=== PATIENT | male | born 2005 | race Hispanic/Latino ===

== ENCOUNTER 2024-12-04 23:48 | Emergency (ER) | payer OTHER ==
[~2024-12-04] VITALS: Ht 180.3 cm; Wt 111.6 kg
[2024-12-04 23:51] VITALS: BP 135/62; PULSE 74; RESP 20; TEMP 98.5; O2SAT 98
[2024-12-05] MEDS ORDERED: KETO10TA2 PO (01:52)
--- NOTE | 2024-12-05 01:53 | ERN ---
General Chief Complaint: FOOT INJURY/PAIN Stated Complaint: C/O PAIN WITH SWELLING TO LEFT FOOT Time Seen by MD: 23:59 Time Seen by Midlevel: 23:59 Source: patient History of Present Illness Initial Comments The patient is a 19-year-old male with no significant past medical history presenting to the emergency department for evaluation of pain to his left ankle. The patient states he accidentally tripped over a hose and twisted his left ankle. Denies any fall or injury to the head. This occurred at a proximally 12:00 p.m. today. Allergies: Coded Allergies: No Known Allergies (Unverified Allergy, Unknown, 12/04/24) Past Medical History Past Medical History: No Pertinent History Past Surgical History: Other ROS Dictation CONSTITUTIONAL: Negative except for HPI HEAD/FACE: Negative except for HPI EENT: Negative except for HPI RESPIRATORY: Negative except for HPI GASTROINTESTINAL/ABDOMINAL: Negative except for HPI GENITOURINARY: Negative except for HPI MUSCULOSKELETAL: Negative except for HPI INTEGUMENTARY: Negative except for HPI NEUROLOGICAL/PSYCH: Negative except for HPI HEMATOLOGIC/LYMPHATIC: Negative except for HPI All Systems Negative, Except as noted above. 13 point review of systems assessed and all negative except for above. Physical Exam Physical Exam Dictation PHYSICAL EXAM: GENERAL: alert,, awake oriented x 3 HEENT: EOMI, Sclera non icteric, moist mucosa NECK: Supple, no JVD, trachea midline LUNGS: Clear breath sounds bilaterally. No wheezes HEART: Regular rate and rhythm. Normal S1 and S2, without murmurs ABD: Abdomen soft, nontender. Bowel sounds present EXT: There is tenderness overlying the proximal portion of the 4th and 5th digit, range of motion restricted secondary to pain, 2+ DP, PT pulses to the left ankle foot NEURO: Alert and oriented to person, follows commands MDM MDM: Differential diagnosis: Fracture, contusion, dislocation There are no social concerns with this patient. Prescription drug management Prescriptions will include: Toradol Medical management and examination interpretation discussions were had by me with other qualified healthcare professionals as indicated for the patient's care. ED Course Orders Procedure Category Date Status Time Ankle Comp 3vws Lt RAD 12/05/24 Taken 01:18 Foot Comp 3+Vws Lt RAD 12/05/24 Taken 01:18 Ketorolac PHA 12/05/24 Complete Tromethamine 30mg/Ml 01:30 Current Medications Medications (Trade) Dose Ordered Sig/Iza Route PRN Reason Start Time Stop Time Status Last Admin Dose Admin Ketorolac Tromethamine (toRADol) 30 mg ONCE ONCE IM 12/05/24 01:30 12/05/24 01:31 DC 12/05/24 01:29 Vital Signs Date Time Temp Pulse Resp B/P (MAP) Pulse Ox O2 Delivery O2 Flow Rate FiO2 12/04/24 23:51 98.4 74 20 135/62 98 Room Air* 0 21 12/04/24 23:51 98.4 74 20 135/62 74 Room Air DX & DISP Disposition: Discharge Departure Impression: Primary Impression: Left ankle sprain Condition: Stable Scripts Ketorolac Tromethamine (Ketorolac Tromethamine) 10 Mg Tablet 1 TAB PO TID for pain for 5 Days, #15 TAB 0 Refills Prov: PADILLA MONZON 12/05/24 Additional Instructions: Your x-ray of the left ankle and left foot does not show any evidence of an acute fracture or dislocation. I have given you a prescription for Toradol which should help improve your symptoms over the next couple of days. Follow up with your primary care doctor in 2-3 days for repeat evaluation Referrals: ADITYA MONROE MD (PCP) Time of Disposition: 01:51 I have reviewed the case, and I agree with, Diagnosis and Plan I performed the substantive portion of the visit. I have reviewed and personally made and approve the management plan that is documented in the note by myself or the KAREN. I acknowledge for responsibility for the patient's management plan. PADILLA MONZON Dec 05, 2024 01:52
--- NOTE | 2024-12-05 02:00 | NUR ---
CEDRIC WRAP APPLIED TO LEFT ANKLE/FOOT ORDERED. CRUTCHES PROVIDED AND EDUCATION PROVIDED ON PROPER CRUTCH USE. PT WAS ABLE TO DEMONSTRATE BACK PROPER CRUTCH USE.
--- NOTE | 2024-12-05 02:17 | HMCIMG ---
EXAM: CR Left Ankle, 3 views. CLINICAL HISTORY: Rule out fracture. COMPARISON: None provided. FINDINGS: No acute fracture or aggressive appearing osseous lesion. Joint spaces are within normal limits. No radiographic evidence of joint effusion. The soft tissues are unremarkable. IMPRESSION: No acute bony abnormality is evident. /[place]
--- NOTE | 2024-12-05 02:19 | HMCIMG ---
EXAM: CR Left Foot, 3 views. CLINICAL HISTORY: Rule out fracture. COMPARISON: None provided. FINDINGS: No acute fracture or aggressive appearing osseous lesion. Joint spaces are within normal limits. The soft tissues are unremarkable. IMPRESSION: No acute bony abnormality is evident. /[place]
== END 2024-12-05 02:10 | disposition home or self-care (01) ==
LOC: EDH 23:48
DX: S93.402A Sprain of unspecified ligament of left ankle, initial encounter (principal); X50.1XXA Overexertion from prolonged static or awkward postures, initial encounter; Y93.89 Activity, other specified; Y92.89 Other specified places as the place of occurrence of the external cause; Y99.8 Other external cause status
CPT/HCPCS: 99284; 73610; 73630; 96372; J1885